=== PATIENT | female | born 1945 | race Caucasian/White ===

== ENCOUNTER 2016-09-22 15:06 | Emergency (ER) | payer MEDICARE, OTHER ==
[2016-09-22 15:15] VITALS: BP 101/75
--- OUTSIDE RECORDS SUMMARY | 2016-09-22 16:27 | XMS REPORT | Continuity of Care Document ---
:1945 Author Organization [facility] ([facility]) Address [address] [place] [address] Phone [phone] Care Team Providers Name Role Phone Preston Mcnally Primary Care Provider [phone] Source Comments This disclosure is being made pursuant to the Care Everywhere program, applicable federal and state laws, and may not contain all informaitonavailable regarding this patient.[facility] ([facility]) Active Allergies and Adverse Reactions No Known Allergies Current Medications Prescription Sig. Disp. Refills Start End Date Status Date nitroglycerin 0.[address] 1 Tab under the 25 Tab 11 Active SL tablet tongue every 5 2 minutes as needed. Indications: ANGINA aspirin 325 mg EC Take 325 mg by mouth Active tablet daily. calcium citrate (200 Take 200 mg by mouth Active mg Ca) 950 mg tablet daily. acetaminophen 650 mg Take 1 Tab by mouth 100 Tab 3 Active Tab every 6 hours as 2 needed for Fever (for Temp greater than 38.5 degrees). Over the counter Indications: PAIN metoPROLol tartrate Take 1.5 Tabs by 90 Tab 3 Active 25 mg tablet mouth 2 times daily. 2 Indications: cad simvastatin 10 mg Take 1 Tab by mouth 30 Tab 1 Active tablet every evening. 2 Indications: ARTERIOSCLEROTIC VASCULAR DISEASE cholecalciferol Take 1 Tab (1,000 60 Tab 6 Active (VITAMIN D3) 1,000 Units total) by mouth 5 unit tablet daily clopidogrel 75 mg Take 1 Tab (75 mg 60 Tab 5 Active tablet total) by mouth daily 5 calcitriol 0.25 mcg Take 1 capsule (0.25 90 capsule 3 Active capsule mcg total) by mouth 5 daily losartan 100 mg Take 1 tablet (100 mg 90 tablet 3 Active tablet total) by mouth daily 5 traMADol 50 mg 1 tablet as needed. 1 Active tablet 6 temazepam 7.5 mg 1 capsule daily. 5 Active capsule 6 calcium acetate 667 Take 2 capsules 180 capsule 6 Active mg capsule (1,334 mg total) by 6 mouth 3 times daily with meals. furosemide 40 mg 2 tablets (80 mg 30 tablet 5 Active tablet total) every morning. 6 furosemide 40 mg Take 1 tablet (40 mg 90 tablet 5 Active tablet total) by mouth daily 6 at noon. Active Problems Problem Noted Date Chronic kidney disease, stage 5, kidney failure 01/15/2016 Last Assessment & Plan: Patient is having hiccups, and nausea and is becoming uremic. These symptoms were not appreciable helped with iron therapy. She needs to start dialysis, but is concerned because of her needle phobia.I will place a permcath, place PPD, get INR and hepatitis studies. Mel Ortiz will contact the [facility] to arrange a time for her to start hemodialysis. Metabolic acidosis 01/17/2013 Last Assessment & Plan: She is acidotic,and has done poorly with enteric replacement of base. Starting HD will allow more tolerable base replacement. MACARIO (obstructive sleep apnea) 11/22/2012 Autoimmune thyroiditis 11/22/2012 Type II or unspecified type diabetes mellitus without mention of 11/22/2012 complication, not stated as uncontrolled Overview: Neuropathy and retinopathy Chronic kidney disease, stage IV (severe) 04/29/2012 Last Assessment & Plan: She has slightly worse GFR than last visit, but is on losartan, so this is likely a hemodynamic change. Anemia in chronic kidney disease 04/29/2012 Overview: IMO Update Last Assessment & Plan: Her hemoglobin is much imporoed with current therapy of iron and darbapoietin. Reticulocyte hemoglobin is within normal limits, suggesting that she is iron replete today. Secondary hyperparathyroidism of renal origin 04/29/2012 Last Assessment & Plan: She has secondary hyperparathyroidism. Will not change therapy now, since she is starting dialysis Postoperative anemia due to acute blood loss 03/16/2012 S/P CABG x 3 03/12/2012 HTN (hypertension) 02/05/2012 Last Assessment & Plan: Hypertension is better on losartan, and serum potassium is acceptable. Thoracic injury 02/25/2010 Pseudophakia 02/21/2010 Background diabetic retinopathy(362.01) 02/21/2010 CAD (coronary artery disease) Resolved Problems Problem Noted Date Resolved Date Hypokalemia 03/16/2012 11/22/2012 Acute on chronic kidney failure 03/12/2012 11/22/2012 Hypotension 03/12/2012 11/22/2012 Respiratory distress 03/10/2012 11/22/2012 Most Recent Encounters Date Type Specialty Providers Description 08/07/2016 Hospital Encounter [facility] Chief Comp: Patient Hypertension MD Yenifer Reported Reason For Visit 07/07/2016 Telephone [facility] Chief Comp: Hypertension MD Yenifer Follow-up Immunizations Name Dates Previously Given Next Due Influenza, unspecified 05/03/2015,05/03/2014 Social History Tobacco Use Types Packs/Day Years Used Date Former Smoker Cigarettes Quit: 08/03/1988 Smokeless Tobacco: Never Used Tobacco Cessation:Counseling Given: Yes Comments: Alcohol Use Drinks/Week oz/Week Comments No Last Filed Vital Signs Vital Sign Reading Time Taken Blood Pressure 180/86 01/18/2016 2:17 PM CDT Pulse 72 01/15/2016 1:57 PM CDT Temperature 36.5 C (97.7 F) 01/18/2016 11:59 AM CDT Respiratory Rate 16 01/10/2016 2:35 PM CDT Height 1.67 m (5' 5.75") 01/15/2016 1:57 PM CDT Weight 84.4 kg (186 lb 1.1 oz) 01/15/2016 1:57 PM CDT Body Mass Index 30.26 01/15/2016 1:57 PM CDT Oxygen Saturation 100% 01/18/2016 2:17 PM CDT Plan of Care Health Maintenance Due Date Last Done Comments Hepatitis B Vaccine (1 of 3 - 1945 Primary Series) Tdap Vaccine 02/01/1956 Td Vaccine 1963 Mammogram 1985 Colonoscopy 1995 DIABETIC: Microalbumin 07/12/2000 07/12/1999 Zoster Vaccine 2005 Osteoporosis Screening (DXA 2010 Bone Density) Pneumococcal Vaccine (1 of 2 2010 - PCV13) DIABETIC: Cholesterol 11/19/2013 11/19/2012, Additional history exists 03/02/2012, 11/13/2000 Diabetic: Hdl 11/19/2013 11/19/2012, 11/13/2000, 07/12/1999 Diabetic: Ldl 11/19/2013 11/19/2012, 11/13/2000, 07/12/1999 DIABETIC: Triglycerides 11/19/2013 11/19/2012, 11/13/2000, 07/12/1999 DIABETIC: Foot Exam 12/07/2013 DIABETIC: Retinal Eye Exam 12/07/2013 DIABETIC: Hemoglobin A1C 06/09/2014 12/07/2013, Additional history exists 04/29/2012, 02/11/2012 Influenza Vaccine: Seasonal 03/03/2016 05/03/2015, (#1) 05/03/2014 HCV Screening Completed 01/18/2016 Results from Last 3 Months Not on file
--- NOTE | 2016-09-22 16:36 | ERNOTE ---
Lower Extremity HPI - General Lower Extremities Pain: leg: right Time Seen by Provider: 09/22/16 16:20 Source: patient Exam Limitations: no limitations - Immun/Allergies/Home Medications Immunizations: IMMUNIZATION HX Immunizations Up to Date Yes History of Influenza Vaccine Yes Hx Pneumococcal Vaccination Yes Allergies/Adverse Reactions: Allergies Allergy/AdvReac Type Severity Reaction Status Date / Time baclofen Allergy Verified 09/22/16 15:15 Home Medications: HOME MEDICATIONS Furosemide [Lasix] 80 mg PO DAILY 05/02/15 [Last Taken Unknown] Losartan Potassium [Cozaar] 50 mg PO DAILY 05/02/15 [Last Taken Unknown] Sodium Bicarbonate 325 mg PO TID 05/02/15 [Last Taken Unknown] traMADol HCL [Ultram] 50 mg PO QID PRN 05/02/15 [Last Taken Unknown] - History of Present Illness Narrative: Patient was diagnosed with a DVT in her left leg in June and started on coumadin. She usually had her INR checked when at dialysis, but somehow that was stopped and she has not been taking coumadin on a regular basis but just occasionally. She is not aware of any injuries but recently has had tenderness in her left lateral calf. It only hurts to touch not at rest. She has been on dialysis for almost a year Occurred: other Review of Systems - Review of Systems Constitutional: Present: recent illness - URI symptoms for about two weeks. Absent: fever, chills ENT: Present: nose congestion. Absent: sore throat Respiratory: Present: cough. Absent: shortness of breath Cardiology: Absent: chest pain Gastrointestinal/Abdominal: Absent: nausea, vomiting, abdominal pain Genitourinary: Present: no symptoms reported Musculoskeletal: Present: See HPI Neurological: Absent: weakness, numbness - Patient's Past Medical History Patient History - Medical: Anemia, Diabetes Type 2 Insulin Dependent, Renal Failure, UTI'S Patient History - Cardiac/Respiratory: CVA/Stroke, Deep Vein Thrombosis, Hypertension, Hyperlipidemia, Myocardial Infarction Patient History - Cancer: No Hx of Cancer Patient History - Surgical Procedures: Cataracts, Cholecystectomy, Coronary Bypass Surgery, Gastric Bypass Patient History - Other: None - Social History Living Situations: home Abuse History: No History of abuse Psych History: No pertinent hx Alcohol Use: none Drug Use: none - Immunizations Immunizations Up to Date: Yes Hx Pneumococcal Vaccination: Yes History of Influenza Vaccine: Yes Physical Exam - Physical Exam General Appearance: Present: wd/wn, alert, no apparent distress Respiratory: Present: no respiratory distress, normal breath sounds, no accessory muscle use, lungs clear Cardiovascular/Chest: Present: regular rate, rhythm, no murmur Extremity Exam: Present: normal inspection, other - mild tenderness and induration in left lateral calf, very small well healing abrasion overlying, no significant echymosis Neurological Exam: Present: alert, oriented, normal mood/affect, no motor/ sensory deficits Skin Exam: Present: normal color, warm/dry ED Progress - Vital Signs Patient's Vital Signs:: I have reviewed the patient's vital signs. Vital Signs: Vital Signs 09/22/16 15:06 Temperature 36.5 C Pulse Rate 84 Respiratory 12 Rate Blood Pressure 101/75 O2 Sat by Pulse 96 Oximetry - CT/Ultrasound CT/Ultrasound Narrative: Ultrasound: chronic superficial thrombus, no DVT - Progress/Reassessment Chief Complaint: Lower Extremity Pain/ Injury Progress Note-Subjective: 09/22/16 17:[address] Castellano 09/22/16 18:00 discussed results with patient and family Departure Clinical Impression: Superficial vein thrombosis - Departure Disposition: Home self-care Condition: Good Instructions: Phlebitis, [id number] Additional Instructions: do NOT take any more coumadin (throw it away!) follow up with your doctor as needed Referrals: Preston Gallego MD [Primary Care Provider] -
== END 2016-09-22 18:17 | disposition home or self-care (01) ==
LOC: ER 15:06
DX: I82.811 Embolism and thrombosis of superficial veins of right lower extremity (principal); Z79.01 Long term (current) use of anticoagulants; I10 Essential (primary) hypertension

== ENCOUNTER 2017-06-08 17:00 | Emergency (ER) | payer MEDICARE, OTHER ==
--- NOTE | 2017-06-08 18:29 | ERNOTE ---
Lower Extremity HPI - Narrative Date of Service: 06/08/17 - General Lower Extremities Pain: heel: right Time Seen by Provider: 06/08/17 17:28 Source: patient, family, RN notes reviewed Exam Limitations: no limitations - Immun/Allergies/Home Medications Immunizations: IMMUNIZATION HX Immunizations Up to Date Yes History of Influenza Vaccine Yes Hx Pneumococcal Vaccination Yes Allergies/Adverse Reactions: Allergies Allergy/AdvReac Type Severity Reaction Status Date / Time baclofen Allergy Verified 06/08/17 17:20 Home Medications: HOME MEDICATIONS Cholecalciferol (Vitamin D3) [Vitamin D] 400 unit PO DAILY 06/08/17 [Last Taken Unknown] Clopidogrel Bisulfate [Plavix] 75 mg PO DAILY 06/08/17 [Last Taken Unknown] Docusate Sodium [Colace] 100 mg PO DAILY 06/08/17 [Last Taken Unknown] Donepezil HCl [Aricept] 5 mg PO DAILY 06/08/17 [Last Taken Unknown] Furosemide [Lasix] 120 mg PO DAILY 06/08/17 [Last Taken Unknown] HYDROcodone/ACETAMINOPHEN [[place] 5-325] 1 tab PO Q6H PRN 06/08/17 [Last Taken Unknown] Metoprolol Succinate [Toprol Xl] 25 mg PO DAILY 06/08/17 [Last Taken Unknown] Sevelamer Carbonate [Renvela] 1,600 mg PO BID 06/08/17 [Last Taken Unknown] Temazepam [Restoril] 15 mg PO HS 06/08/17 [Last Taken Unknown] Warfarin Sodium [Coumadin] 5 mg PO Q48H 06/08/17 [Last Taken Unknown] Warfarin Sodium [Coumadin] 6 mg PO Q48H 06/08/17 [Last Taken Unknown] - History of Present Illness Narrative: 72 year old female brought to the ED by her for pain in her right posterior heel that began earlier today. There is no known injury. The pain started while she was on her way to dialysis. She has taken [place] with no improvement. She was unable to bear weight and had to have assistance getting out of the vehicle on arrival. Date (Duration): 06/08/17 Occurred: this morning Method of Injury: Reports: no apparent injury Associated Symptoms: Reports: unable to bear weight. Denies: snapping, popping sensation Prior Treament: Denies: recently seen, similar symptoms before Review of Systems - Review of Systems Constitutional: Absent: recent illness, fever, chills EYE: Present: no symptoms reported ENT: Present: no symptoms reported Respiratory: Present: no symptoms reported Cardiology: Present: edema. Absent: syncope Gastrointestinal/Abdominal: Absent: nausea, abdominal pain Genitourinary: Present: no symptoms reported Musculoskeletal: Absent: joint pain, joint swelling Skin: Present: lesions. Absent: rash, lumps Neurological: Absent: weakness, numbness Endocrine: Present: no symptoms reported Hematologic/Lymphatic: Present: no symptoms reported Psych: Present: no symptoms reported - Patient's Past Medical History Patient History - Medical: Anemia, Diabetes Type 2 Insulin Dependent, Renal Failure, UTI'S Patient History - Cardiac/Respiratory: CVA/Stroke, Deep Vein Thrombosis, Hypertension, Hyperlipidemia, Myocardial Infarction Patient History - Cancer: No Hx of Cancer Patient History - Surgical Procedures: Cataracts, Cholecystectomy, Coronary Bypass Surgery, Gastric Bypass Patient History - Other: None LMP (females 10-50): Menopausal - Social History Living Situations: spouse Abuse History: No History of abuse Psych History: No pertinent hx Smoking Status: Never smoker Have you smoked in the past 12 months: No - Immunizations Immunizations Up to Date: Yes Hx Pneumococcal Vaccination: Yes History of Influenza Vaccine: Yes Physical Exam - Physical Exam General Appearance: Present: wd/wn, alert, moderate distress, other - Patient screams with any manipulation of right foot by staff but makes no indication of pain when I remove her shoe and sock Respiratory: Present: no respiratory distress, no accessory muscle use Cardiovascular/Chest: Present: normal peripheral pulses Peripheral Pulses: N=norm/S=strong/W=weak/B=bound/A=absent: Dorsalis-pedis (R): Normal Extremity Exam: Present: normal range of motion, pedal edema, bony tenderness - mild, right posterior heel - no ecchymosis or deformity, extremity edema - mild , bilat ankles. Absent: joint redness, joint swelling Neurological Exam: Present: alert, oriented, normal mood/affect, no motor/ sensory deficits Skin Exam: Present: normal color, warm/dry, other - Large healing crusted wound to right anterior/lateral lower leg ED Progress - Vital Signs Patient's Vital Signs:: I have reviewed the patient's vital signs. Vital Signs: Vital Signs 06/08/17 17:10 Temperature 36.2 C L Pulse Rate 106 H Respiratory 12 Rate Blood Pressure 147/77 O2 Sat by Pulse 100 Oximetry - X-Ray X-Ray #1 X-Ray: foot - Right Interpretation: Reviewed by me X-ray Comments: Degenerative changes noted but no acute osseous abnormality visualized - Progress/Reassessment Chief Complaint: Foot Injury/Pain Progress:: Improved Departure Clinical Impression: Heel pain Qualifiers: Laterality: right Qualified Code(s): M79.671 - Pain in right foot - Departure Disposition: Home Follow Up Needed Condition: Stable Instructions: Heel Spur Additional Instructions: Ice and elevate as needed Continue your routine pain medication Contact podiatry for follow up if no improvement in the next 2-3 days Referrals: Krupa Johnson DPM [Staff Physician] -
[2017-06-08 18:41] VITALS: BP 151/87
== END 2017-06-08 18:37 | disposition home or self-care (01) ==
LOC: ER 17:00
DX: M79.671 Pain in right foot (principal)